=== PATIENT | female | born 1975 | race Hispanic/Latino ===

== ENCOUNTER 2021-11-23 20:15 | Emergency (ER) | payer OTHER ==
[2021-11-23] MEDS ORDERED: Ketorolac Tromethamine 30 MG/ML VIAL ONE (21:01)
[2021-11-23] MEDS ORDERED: Morphine 4 MG/ML VIAL ONE (21:34)
== END 2021-11-23 22:37 | disposition home or self-care (01) ==
LOC: ERS 20:15
DX: S39.012A Strain of muscle, fascia and tendon of lower back, initial encounter (principal); E11.9 Type 2 diabetes mellitus without complications; W01.0XXA Fall on same level from slipping, tripping and stumbling without subsequent striking against object, initial encounter; Y92.002 Bathroom of unspecified non-institutional (private) residence as the place of occurrence of the external cause
CPT/HCPCS: 72100; 96372; J1885; J2270

== ENCOUNTER 2021-12-14 13:09 | Inpatient (IN) | payer OTHER ==
[2021-12-14 13:43] LABS: #Basophils 0.1 thou/uL (0.0-0.2); #Eosinphils 0.2 thou/uL (0.0-0.7); #Lymphocytes 2.2 thou/uL (1.20-3.40); #Monocytes 0.4 thou/uL (0.11-0.59); #Neutrophils 4.3 thou/uL (1.40-6.50); %Basophils 0.9 % (0.0-1.0); %Eosinophils 2.7 % (0.0-10.0); %Lymphocytes 30.9 % (21.0-51.0); %Neutrophils 60.5 % (42.0-75.0); Hemoglobin 14.1 g/dL (12.0-16.0); Mean Corpuscular HGB CONC 33.5 g/dL (32.0-36.0); Mean Corpuscular Hemoglobin 30.6 pg (27.0-31.0); Mean Corpuscular Volume 91.1 fL (78.0-98.0); Platelet Count 190 thou/uL (130-400); RBC Distribution Width 11.4 % (11.5-14.5); Red Blood Cell (RBC) Count 4.62 mill/uL (4.20-5.40); White Blood Cell (WBC) Count 7.1 thou/uL (4.8-10.8)
[2021-12-14] MEDS ORDERED: Tenecteplase 50 MG - STEMI KIT ONE (13:53)
[2021-12-14] MEDS ORDERED: Iopamidol 370 76% 50 ML VIAL FS ONE (13:55)
[2021-12-14 13:59] LABS: INR-International Normal Ratio 1.1; Prothrombin Time 14.1 sec (12.0-14.7)
[2021-12-14 14:00] LABS: PTT 33.3 sec (22.9-36.1)
[2021-12-14 14:10] LABS: ALT (SGPT) 41 U/L (8-55); AST (SGOT) 43 U/L (5-34); Alkaline Phosphatase 139 U/L (40-110); Anion Gap 13 mmol/L (10-20); BUN (Urea Nitrogen) 11 mg/dL (7.0-18.7); Bilirubin, Total 0.4 mg/dL (0.2-1.2); CK (CPK) 67 U/L (29-168); Calc. Creatinine Clearance 0 mL/min (70-130); Calcium 9.2 mg/dL (7.8-10.44); Carbon Dioxide 23 mmol/L (22-29); Chloride 102 mmol/L (98-107); Estimated GFR 107; Globulin 3.6 g/dL (2.4-3.5); Glucose 162 mg/dL (70-105); Potassium 4.2 mmol/L (3.5-5.1); Protein, Total 7.6 g/dL (6.0-8.3); Sodium 134 mmol/L (136-145)
[2021-12-14] MEDS ORDERED: Acetaminophen 500 MG TAB ONE (14:30)
[2021-12-14] MEDS ORDERED: hydrALAZINE 20 MG/ML VIAL SLOW IVP PRN ×2 (14:33→17:17)
[2021-12-14] MEDS ORDERED: diphenhydrAMINE 50 MG/ML VIAL ONE (14:48)
[2021-12-14 16:59] VITALS: BMI 32.0
[2021-12-14] MEDS ORDERED: Dextrose 5% in Water 1,000 ML IV PRN (17:15)
[2021-12-14] MEDS ORDERED: HumaLOG 300 UNITS/3 ML VIAL SC PRN (17:15)
[2021-12-14] MEDS ORDERED: Dextrose 50% Abboject 50 ML SYRINGE SLOW IVP PRN (17:15)
[2021-12-14] MEDS ORDERED: FLU VACC QS2022-23(6MOS UP)/PF 60 MCG/0.5 ML SYRINGE IM ONE (18:00)
[2021-12-14] MEDS: Acetaminophen 500 MG TAB PO SCH (19:55)
[2021-12-14] MEDS: Atorvastatin Calcium 40 MG TAB PO SCH (21:29)
[2021-12-15] MEDS: Acetaminophen 500 MG TAB PO SCH ×2 (05:49→13:53)
[2021-12-15] MEDS ORDERED: Aspirin 81 mg Enteric Coated Tablet PO SCH (09:00)
[2021-12-15] MEDS: Lidocaine 5% Patch TD SCH (09:06)
[2021-12-15] MEDS: HumaLOG 300 UNITS/3 ML VIAL SC PRN (11:31)
[2021-12-15 15:09] LABS: Hemoglobin A1c 7.3 % (4.0-6.0)
[2021-12-15 15:19] LABS: Cardiac Risk 7.2 (Less than 4.5)
[2021-12-15] MEDS: Ondansetron PF 4 MG/2 ML Vial IVP PRN ×2 (16:20→23:15)
[2021-12-15] MEDS: traMADol HCl 50 MG TAB PO PRN (18:56)
[2021-12-15] MEDS: Acetaminophen 325 MG TAB PO PRN (21:49)
[2021-12-15] MEDS: Atorvastatin Calcium 40 MG TAB PO SCH (21:49)
[2021-12-15] MEDS: Transdermal Patch Removal TOP SCH (21:55)
[2021-12-15] MEDS ORDERED: Morphine 4 MG/ML VIAL SLOW IVP SCH (23:45)
[2021-12-15] MEDS ORDERED: diphenhydrAMINE 25 MG CAP PO SCH (23:45)
[2021-12-16] MEDS: HumaLOG 300 UNITS/3 ML VIAL SC PRN ×2 (06:10→11:49)
[2021-12-16] MEDS: Ondansetron PF 4 MG/2 ML Vial IVP PRN (06:17)
[2021-12-16] MEDS: traMADol HCl 50 MG TAB PO PRN (06:17)
[2021-12-16] MEDS: Lidocaine 5% Patch TD SCH (08:59)
[2021-12-16] MEDS ORDERED: Fluticasone Propionate Nasal Spray 16 gm Bottle NASAL SCH (09:45)
[2021-12-16] MEDS ORDERED: Aspirin 325 mg Enteric Coated Tablet PO SCH (10:00)
[2021-12-16] MEDS ORDERED: Midazolam HCl 2 mg/2 ml Vial SLOW IVP SCH (11:30)
[2021-12-16] MEDS: HYDROcodone/Acetaminophen 5/325 mg Tablet PO PRN ×2 (16:49→21:07)
[2021-12-16] MEDS ORDERED: tiZANidine HCl 4 MG TAB PO PRN (18:40)
[2021-12-16] MEDS ORDERED: Bisacodyl 5 MG TAB PO PRN (19:28)
[2021-12-16] MEDS ORDERED: Senokot S 8.6-50 MG TAB PO PRN (19:28)
[2021-12-16] MEDS: Atorvastatin Calcium 40 MG TAB PO SCH (21:07)
[2021-12-16] MEDS: Transdermal Patch Removal TOP SCH (21:10)
[2021-12-17] MEDS: HYDROcodone/Acetaminophen 5/325 mg Tablet PO PRN (02:33)
[2021-12-17] MEDS ORDERED: diphenhydrAMINE 25 MG CAP PO SCH (06:15)
[2021-12-17] MEDS: traMADol HCl 50 MG TAB PO PRN (06:19)
[2021-12-17] MEDS ORDERED: Fluticasone Propionate Nasal Spray 16 gm Bottle NASAL SCH (09:00)
[2021-12-17] MEDS ORDERED: Empagliflozin 25 MG TAB PO SCH (09:00)
[2021-12-17] MEDS ORDERED: FLUoxetine HCl 20 MG CAP PO SCH (09:00)
[2021-12-17] MEDS ORDERED: Losartan 25 MG TAB PO SCH (09:00)
[2021-12-17] MEDS ORDERED: Aspirin 325 mg Enteric Coated Tablet PO SCH (09:00)
[2021-12-17] MEDS: Lidocaine 5% Patch TD SCH (09:17)
[2021-12-17] MEDS: Acetaminophen 325 MG TAB PO PRN (13:00)
[2021-12-17] MEDS: HumaLOG 300 UNITS/3 ML VIAL SC PRN (13:00)
[2021-12-17 17:15] VITALS: TEMP 98.2
[2021-12-17] MEDS: Transdermal Patch Removal TOP SCH (19:37)
[2021-12-17] MEDS: Atorvastatin Calcium 40 MG TAB PO SCH (19:37)
[2021-12-17 19:39] VITALS: BP 143/81
[2021-12-17] MEDS ORDERED: traZODone HCl 50 MG TAB PO SCH (21:00)
== END 2021-12-17 21:10 | disposition home or self-care (01) | DRG 62 ==
LOC: ERS 13:09 → CCU 16:29 → NEURO 12-16 15:41
PROVIDERS: ADMIT Internal Medicine; ATTEND Internal Medicine
DX: I63.30 Cerebral infarction due to thrombosis of unspecified cerebral artery (principal); G81.94 Hemiplegia, unspecified affecting left nondominant side; E11.9 Type 2 diabetes mellitus without complications; R47.01 Aphasia; I25.10 Atherosclerotic heart disease of native coronary artery without angina pectoris; L40.9 Psoriasis, unspecified; R29.810 Facial weakness; R29.707 NIHSS score 7; F42.9 Obsessive-compulsive disorder, unspecified; E66.9 Obesity, unspecified; G89.29 Other chronic pain; M54.9 Dorsalgia, unspecified; R47.81 Slurred speech; E78.5 Hyperlipidemia, unspecified; F06.31 Mood disorder due to known physiological condition with depressive features; H92.01 Otalgia, right ear; Z20.822 Contact with and (suspected) exposure to COVID-19; Z98.890 Other specified postprocedural states; Z90.11 Acquired absence of right breast and nipple; Z79.84 Long term (current) use of oral hypoglycemic drugs; Z85.3 Personal history of malignant neoplasm of breast; Z79.899 Other long term (current) drug therapy
CPT/HCPCS: 36415; 36416; 37195; 70450; 70496; 70498; 70551; 72146; 72148; 80053; 80061; 82550; 83036; 84443; 84484; 85025; 85610; 85730; 90471; 90686; 90732; 93005; 93306; G0008; G0009; J1200; J1815; J2250; J2270; J2405; J3101; Q9967; U0003; U0005

== ENCOUNTER 2022-01-06 12:25 | Emergency (ER) | payer OTHER ==
[2022-01-06 13:14] LABS: Bilirubin Negative (Negative); Blood, Urine Negative (Negative); Clarity Clear (Clear); Glucose, Urine (Dipstick) Greater than 1000 mg/dL (Negative); Ketone, Urine Negative (Negative); Leukocyte Negative Leu/uL (Negative); Nitrite Negative (Negative); Protein, Urine (Dipstick) Negative (Neg-Trace); Specific Gravity, Urine 1.039 (1.002-1.036); Urobilinogen Normal mg/dL (Less than 2); pH, Urine 5.5 (5.0-9.0)
[2022-01-06 13:14] LABS: #Eosinphils 0.2 thou/uL (0.0-0.7); #Lymphocytes 1.9 thou/uL (1.20-3.40); #Monocytes 0.5 thou/uL (0.11-0.59); #Neutrophils 6.9 thou/uL (1.40-6.50); %Basophils 0.4 % (0.0-1.0); %Eosinophils 1.7 % (0.0-10.0); %Lymphocytes 20.1 % (21.0-51.0); %Monocytes 5.5 % (0.0-10.0); %Neutrophils 72.3 % (42.0-75.0); Mean Corpuscular HGB CONC 34.4 g/dL (32.0-36.0); Mean Corpuscular Volume 90.1 fl (78.0-98.0); Mean Platelet Volume 7.4 fL (7.4-10.4); Platelet Count 201 thou/uL (130-400); RBC Distribution Width 11.8 % (11.5-14.5); Red Blood Cell (RBC) Count 4.51 mill/uL (4.20-5.40); White Blood Cell (WBC) Count 9.6 thou/uL (4.8-10.8)
[2022-01-06 13:15] LABS: Pregnancy Test - Urine (BHCG) Negative (Negative); Pregu Control Background? CLEAR/WHITE (CLR/WHITE); Pregu Control Bar Appear? YES (CONTROL BAR); Specific Gravity 1.039 (1.002-1.036)
[2022-01-06 13:42] LABS: ALT (SGPT) 40 U/L (8-55); AST (SGOT) 46 U/L (5-34); Albumin 4.1 g/dL (3.5-5.0); Alkaline Phosphatase 91 U/L (40-110); Anion Gap 13 mmol/L (10-20); BUN (Urea Nitrogen) 9 mg/dL (7.0-18.7); Bilirubin, Total 0.7 mg/dL (0.2-1.2); Calc. Creatinine Clearance 0 mL/min (70-130); Calcium 8.7 mg/dL (7.8-10.44); Carbon Dioxide 22 mmol/L (22-29); Chloride 103 mmol/L (98-107); Estimated GFR 107; Globulin 3.4 g/dL (2.4-3.5); Glucose 163 mg/dL (70-105); Lipase 37 U/L (8-78); Potassium 4.5 mmol/L (3.5-5.1); Protein, Total 7.5 g/dL (6.0-8.3); Sodium 133 mmol/L (136-145)
[2022-01-06] MEDS ORDERED: Ketorolac Tromethamine 30 MG/ML VIAL ONE (15:12)
== END 2022-01-06 15:57 | disposition home or self-care (01) ==
LOC: ERS 12:25
DX: R10.9 Unspecified abdominal pain (principal); E11.9 Type 2 diabetes mellitus without complications; E78.5 Hyperlipidemia, unspecified
CPT/HCPCS: 36415; 36416; 74176; 80053; 81003; 81025; 83690; 85025; 96372; J1885

== ENCOUNTER 2022-07-18 08:01 | Outpatient (CLI) | payer OTHER | END 2022-07-18 08:02 | disposition home or self-care (01) | LOC: BICULT 08:01 | PROVIDERS: ATTEND Internal Medicine | DX: D05.11 Intraductal carcinoma in situ of right breast (principal); R22.9 Localized swelling, mass and lump, unspecified | CPT/HCPCS: 36415; 76999; 80053; 82043; 83036 ==

== ENCOUNTER 2022-10-07 07:00 | Outpatient (CLI) | payer OTHER | END 2022-10-07 07:01 | disposition home or self-care (01) | LOC: BICULT 07:00 | PROVIDERS: ATTEND Student in an Organized Health Care Education/Training Program | DX: R74.01 Elevation of levels of liver transaminase levels (principal); K76.0 Fatty (change of) liver, not elsewhere classified | CPT/HCPCS: 76705 ==

== ENCOUNTER 2022-11-03 14:39 | Outpatient (CLI) | payer OTHER | END 2022-11-03 14:40 | disposition home or self-care (01) | LOC: RAD 14:39 | PROVIDERS: ATTEND Student in an Organized Health Care Education/Training Program | DX: M25.561 Pain in right knee (principal) ==

== ENCOUNTER 2023-03-22 16:00 | Outpatient (CLI) | payer OTHER | END 2023-03-22 16:01 | disposition home or self-care (01) | LOC: SLEEPLAB 16:00 | PROVIDERS: ATTEND Student in an Organized Health Care Education/Training Program | DX: G47.33 Obstructive sleep apnea (adult) (pediatric) (principal); R53.83 Other fatigue; G47.61 Periodic limb movement disorder; E66.9 Obesity, unspecified; R06.83 Snoring; G47.00 Insomnia, unspecified; E11.9 Type 2 diabetes mellitus without complications; J45.909 Unspecified asthma, uncomplicated; K76.0 Fatty (change of) liver, not elsewhere classified; R03.0 Elevated blood-pressure reading, without diagnosis of hypertension; M26.609 Unspecified temporomandibular joint disorder, unspecified side; Z68.32 Body mass index [BMI] 32.0-32.9, adult | CPT/HCPCS: 95800; 95806 ==

== ENCOUNTER 2023-12-01 20:43 | Emergency (ER) | payer OTHER ==
[2023-12-01 21:09] LABS: #Basophils 0.06 10x3/uL (0.0-0.2); %Basophils 0.7 % (0.0-1.0); %Eosinophils 1.2 % (0.0-10.0); %Monocytes 4.7 % (0.0-10.0); %Neutrophils 76.2 % (42.0-75.0); Hematocrit 43.2 % (36.0-47.0); Hemoglobin 14.3 g/dL (12.0-16.0); Mean Corpuscular HGB CONC 33.1 g/dL (32.0-36.0); Mean Corpuscular Hemoglobin 31.3 pg (27.0-31.0); Mean Corpuscular Volume 94.5 fL (78.0-98.0); Mean Platelet Volume 9.1 fL (7.4-10.4); Platelet Count 190 10x3/uL (130-400); RBC Distribution Width 13.1 % (11.5-14.5); Red Blood Cell (RBC) Count 4.57 mill/uL (4.20-5.40)
[2023-12-01 21:28] LABS: ALT (SGPT) 35 U/L (8-55); AST (SGOT) 31 U/L (5-34); Albumin 3.6 g/dL (3.5-5.0); Alkaline Phosphatase 104 U/L (40-110); Anion Gap 13 mmol/L (10-20); BUN (Urea Nitrogen) 13 mg/dL (7.0-18.7); Bilirubin, Total 0.2 mg/dL (0.2-1.2); Calc. Creatinine Clearance 0 mL/min (70-130); Calcium 9.3 mg/dL (7.8-10.44); Carbon Dioxide 27 mmol/L (22-29); Chloride 103 mmol/L (98-107); Estimated GFR 102; Globulin 3.5 g/dL (2.4-3.5); Glucose 138 mg/dL (70-105); Potassium 4.8 mmol/L (3.5-5.1); Protein, Total 7.1 g/dL (6.0-8.3); Sodium 138 mmol/L (136-145)
[2023-12-01 21:56] LABS: INR-International Normal Ratio 1.1; Prothrombin Time 13.7 sec (12.0-14.7)
[2023-12-01 21:57] LABS: PTT 30.6 sec (22.9-36.1)
[2023-12-01] MEDS ORDERED: Acetaminophen 500 MG TAB ONE (22:20)
== END 2023-12-01 22:25 ==
LOC: ERS 20:43
DX: R04.0 Epistaxis (principal); I10 Essential (primary) hypertension; E11.9 Type 2 diabetes mellitus without complications; E78.5 Hyperlipidemia, unspecified; Z79.84 Long term (current) use of oral hypoglycemic drugs; Z79.899 Other long term (current) drug therapy; Z55.6 Problems related to health literacy
CPT/HCPCS: 36415; 80053; 85025; 85610; 85730; 86850; 86900; 86901; 99283

== ENCOUNTER 2024-01-09 11:30 | Emergency (ER) | payer OTHER ==
[2024-01-09] MEDS ORDERED: Acetaminophen 500 MG TAB ONE (12:32)
[2024-01-09] MEDS ORDERED: diphenhydrAMINE 50 MG/ML VIAL ONE (12:32)
[2024-01-09] MEDS ORDERED: Metoclopramide HCl 10 MG (2 mL) VIAL ONE (12:47)
== END 2024-01-09 13:35 | disposition home or self-care (01) ==
LOC: ERS 11:30
DX: G44.009 Cluster headache syndrome, unspecified, not intractable (principal); E11.9 Type 2 diabetes mellitus without complications; E78.5 Hyperlipidemia, unspecified; Z79.84 Long term (current) use of oral hypoglycemic drugs; Z79.899 Other long term (current) drug therapy
CPT/HCPCS: 70450; 96365; 96375; J1200; J2765

== ENCOUNTER 2024-11-11 23:21 | Emergency (ER) | payer MEDICAID ==
[2024-11-12 02:06] LABS: #Basophils 0.07 10x3/uL (0.0-0.2); #Eosinophils 0.18 10x3/uL (0.0-0.7); #Monocytes 0.38 10x3/uL (0.11-0.59); #Neutrophils 5.82 10x3/uL (1.40-6.50); %Basophils 0.9 % (0.0-1.0); %Eosinophils 2.2 % (0.0-10.0); %Lymphocytes 19.7 % (21.0-51.0); %Monocytes 4.7 % (0.0-10.0); %Neutrophils 72.1 % (42.0-75.0); Hematocrit 42.2 % (36.0-47.0); Hemoglobin 14.2 g/dL (12.0-16.0); Mean Corpuscular Hemoglobin 30.0 pg (27.0-31.0); Mean Corpuscular Volume 89.0 fL (78.0-98.0); Platelet Count 178 10x3/uL (130-400); Red Blood Cell (RBC) Count 4.74 mill/uL (4.20-5.40); White Blood Cell (WBC) Count 8.07 10x3/uL (4.8-10.8)
[2024-11-12 02:17] LABS: ALT (SGPT) 79 U/L (Less than 34); AST (SGOT) 119 U/L (11-34); Albumin 3.8 g/dL (3.1-4.5); Alkaline Phosphatase 113 U/L (40-110); Anion Gap 10 mmol/L (10-20); BUN (Urea Nitrogen) 13 mg/dL (9.8-20.1); Bilirubin, Total 0.3 mg/dL (0.3-1.2); Calc. Creatinine Clearance 0 mL/min (70-130); Calcium 9.2 mg/dL (7.8-10.44); Carbon Dioxide 27 mmol/L (22-29); Chloride 102 mmol/L (98-107); Globulin 4.1 g/dL (2.4-3.5); Glucose 153 mg/dL (70-105); Potassium 4.3 mmol/L (3.5-5.1); Sodium 135 mmol/L (136-145)
[2024-11-12 03:09] LABS: Bacteria/HPF None Seen HPF (None Seen); CAUTI Indications for Culture Fever or rigors; Glucose, Urine (Dipstick) 300 mg/dL (Negative); Leukocyte 75 Leu/uL (Negative); Protein, Urine (Dipstick) Negative (Neg-Trace); RBC/HPF 0-3 HPF (0-3); Specific Gravity, Urine 1.031 (1.002-1.036)
[2024-11-12 03:10] LABS: Urine Culture Reflex No No
[2024-11-12 05:06] LABS: Actual Bicarbonate (HCO3v) 24.4 mEq/L (22-28); Base Excess 0.1 mEq/L (-2.0 to +3.0); Calcium, Ionized (venous) 1.10 mmol/L (1.16-1.32); Chloride (VBG) 102 mmol/L (98-106); Hematocrit-VBG 46 % (36.0-47.0); Hemoglobin (Hb) 15.5 g/dL (11.7-16.0); Potassium (VBG) 4.41 mmol/L (3.70-5.30); Sodium 138 mmol/L (133-146)
[2024-11-12] MEDS ORDERED: Aspirin Chewable 81 MG TAB ONE (06:08)
== END 2024-11-12 06:15 | disposition home or self-care (01) ==
LOC: ERS 23:21
DX: K76.0 Fatty (change of) liver, not elsewhere classified (principal); R07.89 Other chest pain; E11.9 Type 2 diabetes mellitus without complications
CPT/HCPCS: 36415; 71045; 76705; 80053; 81001; 82010; 82805; 83690; 84484; 85025; 93005; 96374; J2270

== ENCOUNTER 2025-01-07 09:02 | Outpatient (CLI) | payer MEDICAID | END 2025-01-07 09:03 | disposition home or self-care (01) | LOC: SCSMRI 09:02 | PROVIDERS: ATTEND Podiatrist Foot & Ankle Surgery | DX: G57.61 Lesion of plantar nerve, right lower limb (principal); M79.671 Pain in right foot; M62.50 Muscle wasting and atrophy, not elsewhere classified, unspecified site; R60.9 Edema, unspecified ==